=== PATIENT | female | born 1995 | race Caucasian/White ===

== ENCOUNTER 2017-06-14 21:17 | Emergency (ER) | payer OTHER ==
[~2017-06-14] VITALS: Ht 157.5 cm; Wt 55.8 kg
[2017-06-14 21:23] VITALS: BP 111/74; PULSE 70; TEMP 37.1; O2SAT 96; Ht 157.5 cm; Wt 55.8 kg
--- NOTE | 2017-06-14 22:59 | EMERGENCY ROOM VISIT NOTE ---
History Report prepared by Tu: Nelli Bettencourt Under the Supervision of: Dr. Jesus Castro M.D. First contact with patient: 22:50 Chief Complaint: ABDOMINAL PAIN Stated Complaint: ABD PAIN R SIDE Nursing Triage Summary: pt c/o right sided abd pain since 1500, advil 2hr [employer], History of Present Illness The patient is a 22 year old female who presents to the Emergency Room with complaints of right sided abdominal pain beginning at 1500 today. She states she ate at 1300 today and had a regular stomach ache, but at 1600, it worsened. She notes Advil relieved her symptoms and movement worsens them. She rates her pain as a 3/10 in severity. She notes it hurt when she urinates. She denies any nausea, vomiting, fevers, chills, congestion, or . 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 Her last bowel movement was today but she notes she has been "straining for the past couple of days." The patient notes that she noticed "pink vaginal discharge" when she wipes which is abnormal for her. She reports she is sexually active and only uses control pills as protection. She states she feels much better since she took the Advil. Source of History: patient Onset: 1500 today Position: abdomen (right sided) Symptom Intensity: 3/10 in severity Modifying Factors (Worsening): movement Modifying Factors (Relieving): other (Advil) Associated Symptoms: No fevers, No chills, No nausea, No vomiting Note: Negative congestion or . Review of Systems See HPI for pertinent positives and negatives. A total of ten systems were reviewed and were otherwise negative. Family History Patient reports no known family medical history. Social History Smoking Status: Never Smoker Current/Historical Medications Scheduled Control Pills ( Control Pills), 1 TAB PO DAILY Cephalexin (Keflex), 1 CAP PO BID Docusate Sodium (Colace), 1 CAP PO BID Allergies Coded Allergies: Cat Dander (Verified Allergy, Intermediate, ITCHY EYES, SNEEZING, CONGESTION, 06/14/17) Physical Exam Vital Signs Date Time Temp Pulse Resp B/P (MAP) Pulse Ox O2 Delivery O2 Flow Rate FiO2 06/14/17 21:23 37.1 70 18 111/74 96 Room Air Physical Exam GENERAL: Awake, alert, well-appearing, in no distress HENT: Normocephalic, atraumatic. Oropharynx unremarkable. EYES: Normal conjunctiva. Sclera non-icteric. NECK: Supple. No nuchal rigidity. FROM. No JVD. RESPIRATORY: Clear to auscultation. CARDIAC: Regular rate, normal rhythm. Extremities warm and well perfused. Pulses equal. ABDOMEN: Soft, non-distended. No rebound or guarding. No masses. Generalized abdominal discomfort, no discrete tenderness. RECTAL: Deferred. : External genitalia normal. Pelvic examwith thin white discharge that is likely physiologic and otherwise no lesions, CMT or adnexal tenderness. MUSCULOSKELETAL: Chest examination reveals no tenderness. The back is symmetrical on inspection without obvious abnormality. There is no CVA tenderness to palpation. No joint edema. LOWER EXTREMITIES: Calves are equal size bilaterally and non-tender. No edema. No discoloration. NEURO: Normal sensorium. No sensory or motor deficits noted. SKIN: No rash or jaundice noted. Medical Decision & Procedures Laboratory Results Test 06/14/17 00:00 06/14/17 22:50 Urine Color DK YELLOW Urine Appearance TURBID (CLEAR) Urine pH 6.0 (4.5-7.5) Urine Specific [place] 1.025 (1.000-1.030) Urine Protein 3+ (NEG) Urine Glucose (UA) NEG (NEG) Urine Ketones TRACE (NEG) Urine Occult Blood 3+ (NEG) Urine Nitrite POS (NEG) Urine Bilirubin NEG (NEG) Urine Urobilinogen NEG (NEG) Urine Leukocyte Esterase LARGE (NEG) Urine WBC (Auto) >30 /hpf (0-5) Urine RBC (Auto) >30 /hpf (0-4) Urine Hyaline Casts (Auto) 1-5 /lpf (0-5) Urine Epithelial Cells (Auto) >30 /lpf (0-5) Urine Bacteria (Auto) 2+ (NEG) Urine Pathogenic Casts /lpf (0) Urine Test NEG (NEG) Laboratory results reviewed by me Medications Administered Medications (Trade) Dose Ordered Sig/Eddie Route Start Time Stop Time Status Last Admin Dose Admin Cephalexin Monohydrate (Keflex Cap) 500 mg NOW STAT PO 06/14/17 23:57 06/14/17 23:59 DC 06/15/17 00:12 500 MG Cephalexin Monohydrate (Keflex 500MG Home Pack) 1 homepack NOW STAT PO 4/20/18 23:58 06/14/17 23:59 DC 06/14/17 23:58 1 [facility] ED Course 2250: The patient was evaluated in room B6. A complete history and physical exam was performed. Medical Decision I reviewed the patient's past medical history, medications, and the nursing notes as described above. Differential diagnosis: Etiologies such as appendicitis, diverticulitis, PUD, biliary pathology, UTI, pancreatitis, obstruction, mesenteric ischemia, aortic pathology, infections, inflammatory bowel disease, renal colic, as well as others were entertained. The patient is a 22-year-old woman who presents emergency department with right- sided abdominal pain prior to arrival which is now mostly resolved per hpi. Of note the patient reports history of chronic constipation where she has a bowel movement every 2-3 days. She had a bowel movement where she had to significantly strain. Otherwise patient does report some mild dysuria as well as some new reddish vaginal discharge but denies any burning or itching. Otherwise patient is very well-appearing, no acute distress, afebrile stable vital signs. Abdominal exam is benign. I discussed with the patient option for labs versus imaging only given that her symptoms appear related to constipation. Patient was agreeable for the latter. Bedside ultrasound of the gallbladder negative for gallstones or pericholecystic fluid. KUB demonstrates moderate stool burden consistent with the patient's constipation. Pelvic exam demonstrates thin white discharge that is likely physiologic and otherwise no lesions, CMT or adnexal tenderness. UA positive for UTI. The patient denies any concerns for STI's we agree we will wait for cultures to return to inform the need for treatment. Otherwise plan for Colace for constipation and Keflex for UTI. She will follow-up with S. Findings and plan for follow-up reviewed with patient. Patient agreeable and d/c'd per discharge instructions. Medication Reconcilliation Current Medication List: was personally reviewed by me Blood Pressure Screening Patient's blood pressure: Normal blood pressure Blood pressure disposition: Did not require urgent referral Impression Primary Impression: Constipation Additional Impression: UTI (urinary tract infection) Scribe Attestation The scribe's documentation has been prepared under my direction and personally reviewed by me in its entirety. I confirm that the note above accurately reflects all work, treatment, procedures, and medical decision making performed by me. Departure Information Dispostion Home / Self-Care Prescriptions Cephalexin (KEFLEX) 500 Mg Cap 1 CAP PO BID for 7 Days, #14 CAP Prov: Jesus Castro M.D. 06/15/17 Docusate Sodium (COLACE) 100 Mg Cap 1 CAP PO BID for 15 Days, #30 CAP Prov: Jesus Castro M.D. 06/15/17 Patient Instructions ED Constipation, ED UTI Cystitis Female, My [facility] Additional Instructions Please follow up with S next week for re-evaluation. Your symptoms are most likely due to constipation. You also found to have a urinary tract infection. Otherwise, your exam, xray, bedside gallbladder ultrasound, and lab results did not show signs of an emergent condition at this time. You have cultures pending from your exam. Will only be contacted if the results are positive. Colace as directed for stool softening. Also increase your daily fiber intake. Keflex as directed for UTI. Drink plenty of fluids to ensure hydration. Return to the emergency department for worsening symptoms as described in the accompanying instructions. Problem Qualifiers
[2017-06-14] MEDS ORDERED: BCPILLS PO (23:29)
--- NOTE | 2017-06-14 23:35 | DIAGNOSTIC IMAGING REPORT ---
KUB CLINICAL HISTORY: Generalized abdominal pain. Constipation. FINDINGS: An AP, portable, supine abdominal radiograph is obtained. No prior studies are available for comparison at the time of dictation. There is a nonobstructed abdominal bowel gas pattern. Moderate colonic fecal retention is observed. No evidence of intraperitoneal free air is seen on these supine images. There are no abnormal abdominal calcifications. The bony structures appear intact. IMPRESSION: Nonobstructed abdominal bowel gas pattern noting moderate colonic fecal retention. Electronically signed by: Ezequiel Law M.D. 06/14/2017 11:33 PM Dictated Date/Time: 06/14/2017 11:32 PM
[2017-06-14] MEDS ORDERED: CEPHALEXIN MONOHYDRATE 250 MG CAP PO STA (23:57)
[2017-06-14] MEDS ORDERED: CEPHALEXIN 500MG HOME PACK 1 EA BTL PO STA (23:58)
[2017-06-15] MEDS ORDERED: DOCU-94 PO
[2017-06-15] MEDS ORDERED: CEPH-571 PO
--- NOTE | 2017-06-17 11:23 | Pharmacy Progress Note ---
ED Pharmacist Culture FollowUp Date of Service: Jun 17, 2017. Patient was sent home with a prescription for Cephalexin 500 mg BID x 7 days, which should cover the E. Coli growing from the patient's urine culture.
== END 2017-06-15 00:25 | disposition home or self-care (01) ==
LOC: C.EDB 21:19
DX: K59.00 Constipation, unspecified (principal); N39.0 Urinary tract infection, site not specified; Z91.048 Other nonmedicinal substance allergy status